=== PATIENT | female | born 1985 | race Caucasian/White ===

== ENCOUNTER 2025-02-14 12:06 | Emergency (ER) | payer OTHER ==
[~2025-02-14] VITALS: Ht 165.1 cm; Wt 130.5 kg
[2025-02-14] MEDS ORDERED: COZAAR100 MG PO (12:36)
[2025-02-14] MEDS ORDERED: VRAYLAR6 MG PO (12:36)
[2025-02-14] MEDS ORDERED: HYDROXYZINE HCL50 MG PO (12:37)
[2025-02-14] MEDS ORDERED: LAMICTAL200 MG PO (12:37)
[2025-02-14] MEDS ORDERED: METHOCARBAMOL500 MG PO (12:38)
[2025-02-14] MEDS ORDERED: LYRICA200 MG PO (12:38)
[2025-02-14 13:20] VITALS: BP 129/83
== END 2025-02-14 13:20 | disposition home or self-care (01) ==
LOC: ED 12:06 → EDBD 12:07 → ED 12:07
DX: T16.2XXA Foreign body in left ear, initial encounter (principal); W44.8XXA Other foreign body entering into or through a natural orifice, initial encounter; Z88.1 Allergy status to other antibiotic agents; Z79.899 Other long term (current) drug therapy
CPT/HCPCS: 69200; 99282